=== PATIENT | male | born 1965 | race Caucasian/White ===

== ENCOUNTER 2019-08-04 12:49 | Emergency (ER) | payer BC ==
--- NOTE | 2019-08-04 14:13 | ED ---
Adult Trauma - HPI Summary HPI Summary: The pt is a 53 yr old male presenting to [facility] c/o left knee pain beginning 2 hours [facility]. He states that he was walking on his driveway to last picker his mail but slipped and fell down on his left knee. After walking on the states he felt pain and a clicking sound in his knee. He notes that he has had ligament damage before and that his current symptoms feel like ligament damage. He is able to bear weight on his left leg and no aggravating factors noted. He notes that ice has alleviated some of the pain. He also denies hitting his head or LOC. - History of Current Complaint Chief Complaint: EDExtremityLower Stated Complaint: LT KNEE INJ FROM FALL PER PT Time Seen by Provider: 08/04/19 13:06 Hx Obtained From: Patient Mechanism of Injury: Fall Loss of Consciousness: no loss of consciousness Onset/Duration: Started Hours Ago, Still Present Onset of Pain: Post Accident Onset Severity: Mild Current Severity: Mild Pain Intensity: 2 Pain Scale Used: 0-10 Numeric Location: Extremities - LLE Aggravating Factor(s): Nothing Alleviating Factor(s): Ice Associated Signs & Symptoms: Positive: Other: - pos - left knee pain. Negative : Loss of Consciousness - Allergy/Home Medications Allergies/Adverse Reactions: Allergies Allergy/AdvReac Type Severity Reaction Status Date / Time No Known Allergies Allergy Verified 08/25/16 09:48 PMH/Surg Hx/FS Hx/Imm Hx Endocrine/Hematology History: Denies: Hx Diabetes Cardiovascular History: Denies: Hx Hypertension, Hx Pacemaker/ICD History: Denies: Hx Renal Disease Sensory History: Denies: Hx Hearing Aid Psychiatric History: Denies: Hx Panic Disorder - Surgical History Surgery Procedure, Year, and Place: LOWER LEFT LEG 1993-METAL PLATE. TORE TENDON IN LEFT THUMB-PIN. DEVIATED SEPTUM 1991 Infectious Disease History: No Infectious Disease History: Denies: Traveled Outside the [place] in Last 30 Days - Family History Known Family History: Negative: Renal Disease - Social History Alcohol Use: Occasionally Substance Use Type: Reports: None Smoking Status (MU): Never Smoked Tobacco Review of Systems Musculoskeletal: Other - pos - left knee pain Negative: Syncope All Other Systems Reviewed And Are Negative: Yes Physical Exam - Summary Physical Exam Summary: VITAL SIGNS: Reviewed. GENERAL: Patient is a well-developed and nourished male who is lying comfortable in the stretcher. Patient is not in any acute respiratory distress. HEAD AND FACE: No signs of trauma. No ecchymosis, hematomas or skull depressions. No sinus tenderness. EYES: PERRLA, EOMI x 2, No injected conjunctiva, no nystagmus. EARS: Hearing grossly intact. Ear canals and tympanic membranes are within normal limits. MOUTH: Oropharynx within normal limits. NECK: Supple, trachea is midline, no adenopathy, no JVD, no carotid bruit, no c- spine tenderness, neck with full ROM. CHEST: Symmetric, no tenderness at palpation. LUNGS: Clear to auscultation bilaterally. No wheezing or crackles. CVS: Regular rate and rhythm, S1 and S2 present, no murmurs or gallops appreciated. ABDOMEN: Soft, non-tender. No signs of distention. No rebound, no guarding, and no masses palpated. Bowel sounds are normal. EXTREMITIES: FROM in all major joints, no edema, no cyanosis or clubbing. NEURO: Alert and oriented x 3. No acute neurological deficits. Speech is normal and follows commands. SKIN: Dry and warm. Triage Information Reviewed: Yes Vital Signs On Initial Exam: Initial Vitals Temp Pulse Resp BP Pulse Ox 98.2 F 88 16 146/87 98 08/04/19 12:54 08/04/19 12:54 08/04/19 12:54 08/04/19 12:54 08/04/19 12:54 Vital Signs Reviewed: Yes Procedures - Sedation Patient Received Moderate/Deep Sedation with Procedure: No Diagnostics - Vital Signs Vital Signs Temp Pulse Resp BP Pulse Ox 08/04/19 12:54 98.2 F 88 16 146/87 98 - Laboratory Lab Statement: Any lab studies that have been ordered have been reviewed, and results considered in the medical decision making process. Adult Trauma Course/Dx - Course Assessment/Plan: The pt is a 53 yr old male presenting to [facility] c/o left knee pain beginning 2 hours [facility]. He states that he was walking on his driveway to last picker his mail but slipped and fell down on his left knee. After walking on the states he felt pain and a clicking sound in his knee. He notes that he has had ligament damage before and that his current symptoms feel like ligament damage. He is able to bear weight on his left leg and no aggravating factors noted. He notes that ice has alleviated some of the pain. He also denies hitting his head or LOC. Left knee x ray IMPRESSION: CHRONIC APPEARING OSSIFIC FRAGMENT ALONG THE SUPERIOR ASPECT OF THE MEDIAL FEMORAL CONDYLE. CORRELATE WITH POINT TENDERNESS.. Patient is able to ambulate with no significant pain. Therefore, I discussed the test results and he will be discharged home with follow-up with PCP. If he continues to have pain he was recommended to return to the emergency department or follow-up with orthopedics. The patient understands and agrees. - Diagnoses Provider Diagnoses: Knee pain Discharge ED - Sign-Out/Discharge Documenting (check all that apply): Patient Departure - discharge - Discharge Plan Condition: Stable Disposition: HOME Patient Education Materials: Knee Pain (ED) Referrals: Jd Ross MD [Primary Care Provider] - 3 Days Additional Instructions: Please follow up with your primary care provider within 3 days. Please return to the ED for any new or worsening symptoms. - Billing Disposition and Condition Condition: STABLE Disposition: Home - Attestation Statements Document Initiated by Osei: Yes Documenting Scribe: Basilio Lockett Provider For Whom Osei is Documenting (Include Credential): Vicente Valentin MD Scribe Attestation: IBasilio, scribed for Vicente Valentin MD on 08/05/19 at 1601. Scribe Documentation Reviewed: Yes Provider Attestation: The documentation as recorded by the Basilio echeverria accurately reflects the service I personally performed and the decisions made by me, Vicente Valentin MD Status of Scribe Document: Viewed
[2019-08-04 14:54] VITALS: BP 131/85
== END 2019-08-04 14:52 | disposition home or self-care (01) ==
LOC: ED 12:49
DX: M25.562 Pain in left knee (principal)
CPT/HCPCS: 99282